=== PATIENT | female | born 1990 | race Caucasian/White ===

== ENCOUNTER 2016-12-10 17:02 | Emergency (ER) | payer SELFPAY ==
[2016-12-10 18:21] LABS: HEMOGLOBIN 13.9 gm/dl (12.3-15.3); RED BLOOD COUNT 4.76 M/UL (4.00-5.10); WHITE BLOOD COUNT 5.9 K/UL (4.5-11.0)
[2016-12-10 18:46] LABS: BUN/CREATININE RATIO 20 (0-10)
== END 2016-12-10 21:39 | disposition home or self-care (01) ==
LOC: ER1 17:02
PROVIDERS: Physician Assistant
DX: O20.0 Threatened abortion (principal); Z88.0 Allergy status to penicillin; Z87.891 Personal history of nicotine dependence; Z3A.01 Less than 8 weeks gestation of pregnancy
CPT/HCPCS: 36415; 76817; 80053; 81001; 83690; 84702; 85025; 86900; 86901; 87086; 99284

== ENCOUNTER → 2016-12-12 | Outpatient (CLI) | payer SELFPAY | LOC: LAB 13:32 | DX: Z36 Encounter for antenatal screening of mother (principal) | CPT/HCPCS: 36415; 84702 ==